=== PATIENT | female | born 1995 ===

== ENCOUNTER 2020-06-03 06:48 | Emergency (ER) | payer SELFPAY ==
[~2020-06-03] VITALS: Ht 162.6 cm; Wt 70.8 kg
--- NOTE | 2020-06-03 07:05 | NUR ---
ED Nurse Note: Patient walked into ED after noticing a scant amount of blood on her underwear upon waking up. patient reports of having 3 positive tests at home. last period was april 25 2020. AAOx4, verbally responisve. G2, P1. No SOB. ERMD at bedside.
--- NOTE | 2020-06-03 07:15 | NUR ---
ED Nurse Note: IV line established. Blood and urine sent to lab.
--- NOTE | 2020-06-03 07:44 | Emergency Room Report ---
History of Present Illness General Chief Complaint: Complications Source: Patient Present Illness HPI Patient started with spotting yesterday. The 5 AM she passed some tissue. She had 2/10 cramping and lower back yesterday but the pain is no longer there at this time. She denies any fevers or chills. There is no nausea vomiting or diarrhea. She is tested positive for and also last menstruation was April 25. She has a 4-year-old and this is her second . She denies dysuria or change in bowels. She says her blood type is O+. Last night she had a rash on her right forearm after rubbing her chin. She has never had this before and it disappeared on its own after several minutes. No exposure to Covid positive contacts. No sore throat, chest pain, palpitations, shortness of breath, joint pain, depression, anxiety, visual changes, dizziness, headache. Allergies: Coded Allergies: No Known Allergies (Unverified , 06/03/20) COVID-19 Screening Contact w/high risk pt: No Experienced COVID-19 symptoms?: No COVID-19 Testing performed FILM ARCHIVIST: No Patient History Social History: Denies: smoking, alcohol use, drug use Social History Narrative in [place] and has the 4-year-old. She recently moved to [place]. Gerald at [employer] Last Menstrual Period: april 25 2020 : 2 Para: 1 Reviewed Nursing Documentation: PMH: Agreed; PSxH: Agreed Nursing Documentation-PMH Past Medical History: No History, Except For Hx Asthma: Yes Review of Systems All Other Systems: negative except mentioned in HPI Physical Exam Vital Signs Date Time Temp Pulse Resp B/P (MAP) Pulse Ox O2 Delivery O2 Flow Rate FiO2 06/03/20 06:52 98.4 18 16 130/87 (101) 99 Room Air Sp02 EP Interpretation: reviewed, normal General Appearance: well appearing, no apparent distress, GCS 15 Head: normocephalic Eyes: bilateral eye normal inspection, bilateral eye PERRL, bilateral eye EOMI ENT: other - Wearing mask Neck: supple Respiratory: lungs clear, normal breath sounds Cardiovascular #1: regular rate, rhythm Cardiovascular #2: 2+ radial (R) Gastrointestinal: normal inspection, normal bowel sounds, non tender, no mass, non-distended Genitourinary: no CVA tenderness, deferred - For ultrasound Musculoskeletal: back normal, normal range of motion, gait/station normal Neurologic: alert, oriented x3, grossly normal Psychiatric: mood/affect normal Skin: no rash, warm/dry, other - Fully dressed Other Organ Systems Clot or tissue brought by patient. 1/2 x 2 cm Medical Decision Making Diagnostic Impression: Primary Impression: Miscarriage ER Course Patient presents with vaginal bleeding in first trimester. Differential includes threatened miscarriage, miscarriage, urinary tract infection, ectopic amongst others. Patient evaluated with labs and ultrasound including quantitative hCG. Even though she notes her blood type we will determine this. Patient given a liter of saline. Quantitative hCG 10. CBC and CMP normal. Urinalysis with hematuria no pyuria. Blood O+. Ultrasound with empty uterus. Under the clinical situation most likely the patient had a miscarriage. Alternatively this could be early . These possibilities were discussed with the patient. Patient understands and is comfortable with outpatient follow-up. No apparent medical emergency at this time. Laboratory Tests Test 06/03/20 07:15 White Blood Count 5.8 K/UL (4.8-10.8) Red Blood Count 5.14 M/UL (4.20-5.40) Hemoglobin 13.9 G/DL (12.0-16.0) Hematocrit 42.2 % (37.0-47.0) Mean Corpuscular Volume 82 FL (80-99) Mean Corpuscular Hemoglobin 27.0 PG (27.0-31.0) Mean Corpuscular Hemoglobin Concent 32.9 G/DL (32.0-36.0) Red Cell Distribution Width 15.5 % (11.6-14.8) H Platelet Count 280 K/UL (150-450) Mean Platelet Volume 9.3 FL (6.5-10.1) Neutrophils (%) (Auto) 55.8 % (45.0-75.0) Lymphocytes (%) (Auto) 31.5 % (20.0-45.0) Monocytes (%) (Auto) 9.7 % (1.0-10.0) Eosinophils (%) (Auto) 2.1 % (0.0-3.0) Basophils (%) (Auto) 0.9 % (0.0-2.0) Urine Color Pale yellow Urine Appearance Slightly cloudy Urine pH 6.5 (4.5-8.0) Urine Specific [place] 1.015 (1.005-1.035) Urine Protein Negative (NEGATIVE) Urine Glucose (UA) Negative (NEGATIVE) Urine Ketones Negative (NEGATIVE) Urine Blood 5+ (NEGATIVE) H Urine Nitrite Negative (NEGATIVE) Urine Bilirubin Negative (NEGATIVE) Urine Urobilinogen Normal MG/DL (0.0-1.0) Urine Leukocyte Esterase 1+ (NEGATIVE) H Urine RBC 40-60 /HPF (0 - 2) H Urine WBC 0-2 /HPF (0 - 2) Urine Squamous Epithelial Cells Few /LPF (NONE/OCC) Urine Bacteria Occasional /HPF (NONE) Sodium Level 139 MMOL/L (136-145) Potassium Level 3.6 MMOL/L (3.5-5.1) Chloride Level 106 MMOL/L (98-107) Carbon Dioxide Level 26 MMOL/L (21-32) Anion Gap 8 mmol/L (5-15) Blood Urea Nitrogen 10 mg/dL (7-18) Creatinine 0.7 MG/DL (0.55-1.30) Estimated Glomerular Filtration Rate > 60 mL/min (>60) Glucose Level 95 MG/DL (74-106) Calcium Level 8.6 MG/DL (8.5-10.1) Total Bilirubin 0.3 MG/DL (0.2-1.0) Aspartate Amino Transferase (AST) 15 U/L (15-37) Alanine Aminotransferase (ALT) 16 U/L (12-78) Alkaline Phosphatase 60 U/L (46-116) Total Protein 7.5 G/DL (6.4-8.2) Albumin 3.9 G/DL (3.4-5.0) Globulin 3.6 g/dL Albumin/Globulin Ratio 1.1 (1.0-2.7) Lipase 136 U/L (73-393) Human Chorionic Gonadotropin, Quant 10 mIU/mL (1-6) H CT/MRI/US Diagnostic Results CT/MRI/US Diagnostic Results : Imaging Test Ordered: ultrasound Impression No intrauterine at this time. Short-term beta-hCG monitoring and repeat short-term OB ultrasound are recommended. Note, ectopic cannot entirely be excluded, given the history of bleeding and positive test. Normal appearing ovaries with normal blood flow. Trace free fluid in the right adnexa, which may be physiologic. No blood in the pelvis. Last Vital Signs Date Time Temp Pulse Resp B/P (MAP) Pulse Ox O2 Delivery O2 Flow Rate FiO2 06/03/20 10:07 98.4 71 19 128/75 98 Room Air Status: improved Disposition: HOME, SELF-CARE Condition: Improved Referrals: NOT CHOSEN IPA/,REFERRING (PCP) Galo Rice MD Jun 03, 2020 07:44
[2020-06-03 07:56] LABS: BASOPHILS % (AUTO) 0.9 % (0.0-2.0); EOSINOPHILS % (AUTO) 2.1 % (0.0-3.0); HEMATOCRIT 42.2 % (37.0-47.0); HEMOGLOBIN 13.9 G/DL (12.0-16.0); LYMPHOCYTES % (AUTO) 31.5 % (20.0-45.0); MEAN CORPUSCULAR VOLUME 82 FL (80-99); MONOCYTES % (AUTO) 9.7 % (1.0-10.0); NEUTROPHILS % (AUTO) 55.8 % (45.0-75.0); PLATELET COUNT 280 K/UL (150-450); RED BLOOD COUNT 5.14 M/UL (4.20-5.40); RED CELL DISTRIBUTION WIDTH 15.5 % (11.6-14.8); WHITE BLOOD COUNT 5.8 K/UL (4.8-10.8)
[2020-06-03 07:58] LABS: APPEARANCE,URINE SLIGHTLY CLOUDY; BILIRUBIN, URINE NEGATIVE (NEGATIVE); COLOR,URINE PALE YELLOW; GLUCOSE, URINE (UA) NEGATIVE (NEGATIVE); KETONES,URINE NEGATIVE (NEGATIVE); LEUKOCYTE ESTERASE ,URINE 1+ (NEGATIVE); NITRITE,URINE NEGATIVE (NEGATIVE); PH,URINE 6.5 (4.5-8.0); PROTEIN,URINE NEGATIVE (NEGATIVE); UROBILINOGEN,URINE NORMAL MG/DL (0.0-1.0)
[2020-06-03 08:12] LABS: ANION GAP 8 mmol/L (5-15); BLOOD UREA NITROGEN 10 mg/dL (7-18); CALCIUM 8.6 MG/DL (8.5-10.1); CARBON DIOXIDE 26 MMOL/L (21-32); CHLORIDE 106 MMOL/L (98-107); CREATININE 0.7 MG/DL (0.55-1.30); POTASSIUM 3.6 MMOL/L (3.5-5.1); SODIUM 139 MMOL/L (136-145)
[2020-06-03 08:15] LABS: ALANINE AMINOTRANSFERASE 16 U/L (12-78); ALBUMIN 3.9 G/DL (3.4-5.0); ALBUMIN/GLOBULIN RATIO 1.1 (1.0-2.7); ALKALINE PHOSPHATASE 60 U/L (46-116); ASPARTATE AMINO TRANSFERASE 15 U/L (15-37); BILIRUBIN,TOTAL 0.3 MG/DL (0.2-1.0)
--- NOTE | 2020-06-03 09:05 | NUR ---
ED Nurse Note: US at bedside.
[2020-06-03 10:07] VITALS: BP 128/75
--- NOTE | 2020-06-03 10:07 | NUR ---
ED Nurse Note: Pt cleared by ERMD for discharge. DC instructions was given and explained to pt and verbalized understanding of teachings. All medical deviecs such as ID band and IV line removed. Pt is AAO x4, ambulatory and left with all personal belongings.
--- NOTE | 2020-06-03 10:11 | Diagnostic Imaging Report ---
EXAM: US , Transvaginal CLINICAL HISTORY: ABD PAIN TECHNIQUE: Real-time transvaginal obstetrical ultrasound of the maternal pelvis and a first trimester with image documentation. Transvaginal imaging was used for better evaluation of the fetus and adnexa. COMPARISON: No relevant prior studies available. FINDINGS: No intrauterine identified at this time. The uterus measures 6.8 x 5.8 x 3.67 m. No uterine fibroids. Endometrial complex measures 7 mm. The right ovary measures 3.0 x 2.1 x 2.3 cm. Normal color flow and doppler interrogation. The left ovary measures 2.9 x 1.7 x 1.5 cm. Normal color flow and doppler interrogation. Trace free fluid in the right adnexa, which may be physiologic. IMPRESSION: No intrauterine at this time. Short-term beta-hCG monitoring and repeat short-term OB ultrasound are recommended. Note, ectopic cannot entirely be excluded, given the history of bleeding and positive test. Normal appearing ovaries with normal blood flow. Trace free fluid in the right adnexa, which may be physiologic. No blood in the pelvis.
== END 2020-06-03 10:07 | disposition home or self-care (01) ==
LOC: EDSEX 06:48 → EMR 07:28
DX: O03.9 Complete or unspecified spontaneous abortion without complication (principal); M54.5 Low back pain
CPT/HCPCS: 36415; 76801; 80053; 81003; 83690; 84702; 85025; 86850; 86900; 86901; 96360; 99284